=== PATIENT | female | born 1995 | race African-American/Black ===

== ENCOUNTER 2019-12-20 23:05 | Emergency (ER) | payer MEDICAID ==
[~2019-12-20] VITALS: Ht 167.6 cm; Wt 72.6 kg
[2019-12-20 23:20] VITALS: BP 131/83
--- NOTE | 2019-12-20 23:20 | NUR ---
ED Nurse Note: Pt walked into ED from home for c/o diffuse abdominal pain onset three days ago. Pt states pain is sharp and burning in nature, nonradiating. Pt also reports n/v, decreased oral intake and has not been able to sleep. Pt denies urinary symptoms. Pt is aaox4, no cardiac or respiratory distress noted, ambulatory with steady gait. Pt connected to cardiac cath technologist.
--- NOTE | 2019-12-20 23:37 | Emergency Room Report ---
History of Present Illness General Chief Complaint: Vomiting Source: Patient Present Illness HPI Disclaimer: Please note that this report is being documented using [employer] technology. This can lead to erroneous entry secondary to incorrect interpretation by the dictating instrument. HPI: 24-year-old female with no reported medical history resents for evaluation of abdominal pain. Symptoms been present approximately 3 days. She notes an upper abdominal cramping and stabbing pain in the epigastrium left and right upper quadrants. Has been constant since onset. Does not remember an inciting illness. Has reported repeated nonbloody, nonbilious type vomiting without diarrhea. Denies lower pelvic pain. No history of intra-abdominal surgeries. Denies dysuria, hematuria, vaginal bleeding or vaginal discharge. LMP unknown. Denies drug or alcohol use PMH: Denies PSH: Denies Allergies: None reported Social Hx: Denies Allergies: Coded Allergies: No Known Allergies (Unverified , 12/20/19) Patient History Now: No Nursing Documentation-PMH Past Medical History: No Stated History Review of Systems All Other Systems: negative except mentioned in HPI Physical Exam Vital Signs Date Time Temp Pulse Resp B/P (MAP) Pulse Ox O2 Delivery O2 Flow Rate FiO2 12/20/19 23:10 98.1 85 22 131/83 (99) 100 General: Awake and alert, appears uncomfortable HEENT: NC/AT. EOMI. anicteric sclera. Moist mucous membranes. Cardiovascular: RRR. S1 and S2 normal. No murmur appreciated Resp: Normal work of breathing. No cough, wheezing or crackles appreciated Abdomen: Abdomen is soft, nondistended. Tenderness in the epigastrium, left upper quadrant right upper quadrant without Contreras's. No significant tenderness in the lower quadrants or the periumbilical region. No CVA tenderness. Skin: Intact. No abrasions, laceration or rash over the exposed skin MSK: Normal tone and bulk. Moving all extremities. No obvious deformity. Neuro: Awake and alert. Mentating appropriately. Medical Decision Making Diagnostic Impression: Primary Impression: Vomiting Additional Impressions: UTI (urinary tract infection) Subchorionic hemorrhage in first trimester ER Course 24-year-old female presents for evaluation of 3 days upper abdominal pain, nausea and vomiting. Differential includes but not limited to gastritis, pancreatitis, cholecystitis, hepatitis, bowel obstruction, appendicitis, diverticulitis, nephrolithiasis. Start broad metabolic and infectious work-up. Will provide IV fluids, antiemetics. Her abdomen at this time Laboratory Tests Test 12/20/19 23:20 12/20/19 23:35 White Blood Count 8.9 K/UL (4.8-10.8) Red Blood Count 3.89 M/UL (4.20-5.40) L Hemoglobin 12.2 G/DL (12.0-16.0) Hematocrit 33.4 % (37.0-47.0) L Mean Corpuscular Volume 86 FL (80-99) Mean Corpuscular Hemoglobin 31.4 PG (27.0-31.0) H Mean Corpuscular Hemoglobin Concent 36.6 G/DL (32.0-36.0) H Red Cell Distribution Width 11.2 % (11.6-14.8) L Platelet Count 294 K/UL (150-450) Mean Platelet Volume 5.3 FL (6.5-10.1) L Neutrophils (%) (Auto) 84.5 % (45.0-75.0) H Lymphocytes (%) (Auto) 10.2 % (20.0-45.0) L Monocytes (%) (Auto) 4.8 % (1.0-10.0) Eosinophils (%) (Auto) 0.0 % (0.0-3.0) Basophils (%) (Auto) 0.4 % (0.0-2.0) Sodium Level 141 MMOL/L (136-145) Potassium Level 3.2 MMOL/L (3.5-5.1) L Chloride Level 105 MMOL/L (98-107) Carbon Dioxide Level 21 MMOL/L (21-32) Anion Gap 15 mmol/L (5-15) Blood Urea Nitrogen 18 mg/dL (7-18) Creatinine 0.7 MG/DL (0.55-1.30) Estimate Glomerular Filtration Rate > 60 mL/min (>60) Glucose Level 121 MG/DL (74-106) H Calcium Level 9.5 MG/DL (8.5-10.1) Total Bilirubin 0.7 MG/DL (0.2-1.0) Aspartate Amino Transferase (AST) 15 U/L (15-37) Alanine Aminotransferase (ALT) 23 U/L (12-78) Alkaline Phosphatase 46 U/L (46-116) Total Protein 8.4 G/DL (6.4-8.2) H Albumin 4.4 G/DL (3.4-5.0) Globulin 4.0 g/dL Albumin/Globulin Ratio 1.1 (1.0-2.7) Lipase 41 U/L (73-393) L Human Chorionic Gonadotropin, Quant 71807 mIU/mL (1-6) H Urine Color Yellow Urine Appearance Slightly cloudy Urine pH 6 (4.5-8.0) Urine Specific [place] 1.025 (1.005-1.035) Urine Protein 3+ (NEGATIVE) H Urine Glucose (UA) Negative (NEGATIVE) Urine Ketones 4+ (NEGATIVE) H Urine Blood 1+ (NEGATIVE) H Urine Nitrite Negative (NEGATIVE) Urine Bilirubin Negative (NEGATIVE) Urine Urobilinogen 1 MG/DL (0.0-1.0) H Urine Leukocyte Esterase 1+ (NEGATIVE) H Urine RBC 2-4 /HPF (0 - 2) H Urine WBC 2-4 /HPF (0 - 2) Urine Squamous Epithelial Cells Many /LPF (NONE/OCC) H Urine Bacteria Many /HPF (NONE) H Urine HCG, Qualitative Positive (NEGATIVE) Reevaluation Time: 02:05 Last Vital Signs Date Time Temp Pulse Resp B/P (MAP) Pulse Ox O2 Delivery O2 Flow Rate FiO2 12/20/19 23:10 98.1 85 22 131/83 (99) 100 Reevaluation Impression Urinalysis shows a positive urine hCG screen and a blood test showed an hCG level of greater than 20,000. Patient does not know her LMP. Ultrasound was ordered showing a gestational sac without a pole. There is a subchorionic hemorrhage noted approximately 25% of the gestational sac. May be too early to see the pole and the patient will require repeat ultrasound by her PLAYER DEVELOPMENT MANAGER both her development and for monitoring of the subchorionic hemorrhage. Rh factor is positive, RhoGam not needed. There is bacteria in the urinalysis which was treated with ceftriaxone in the emergency department and then the patient will be discharged on Keflex. Will start on prenatals and Zofran as well. Patient received IV fluids had no further emesis. She is tolerating p.o. Can follow-up with her PLAYER DEVELOPMENT MANAGER for repeat ultrasound. Discussed reasons to return to the emergency department. She understands and agrees with this treatment plan. Disposition: HOME, SELF-CARE Condition: Stable Scripts Ondansetron Odt* (ZOFRAN ODT*) 4 Mg Tab.rapdis 4 MG BC EVERY 6 HOURS PRN for Nausea & Vomiting, #10 TAB 0 Refills Prov: Naldo Azar MD 12/21/19 Cephalexin* (KEFLEX*) 500 Mg Capsule 500 MG ORAL EVERY 12 HOURS for 10 Days, #20 CAP 0 Refills Prov: Naldo Azar MD 12/21/19 Vit37/Iron/Folic Acid (PRENATA CHEWABLE TABLET) 1 Each Tab.chew 1 EACH PO DAILY, #30 TAB Prov: Naldo Azar MD 12/21/19 Referrals: [facility],REFERRING (PCP) Naldo Azar MD Dec 20, 2019 23:37
[2019-12-20 23:41] LABS: BASOPHILS % (AUTO) 0.4 % (0.0-2.0); HEMATOCRIT 33.4 % (37.0-47.0); HEMOGLOBIN 12.2 G/DL (12.0-16.0); LYMPHOCYTES % (AUTO) 10.2 % (20.0-45.0); MEAN CORPUSCULAR VOLUME 86 FL (80-99); MONOCYTES % (AUTO) 4.8 % (1.0-10.0); NEUTROPHILS % (AUTO) 84.5 % (45.0-75.0); PLATELET COUNT 294 K/UL (150-450); RED BLOOD COUNT 3.89 M/UL (4.20-5.40); RED CELL DISTRIBUTION WIDTH 11.2 % (11.6-14.8); WHITE BLOOD COUNT 8.9 K/UL (4.8-10.8)
[2019-12-20 23:52] LABS: ANION GAP 15 mmol/L (5-15); BLOOD UREA NITROGEN 18 mg/dL (7-18); CALCIUM 9.5 MG/DL (8.5-10.1); CARBON DIOXIDE 21 MMOL/L (21-32); CHLORIDE 105 MMOL/L (98-107); CREATININE 0.7 MG/DL (0.55-1.30); POTASSIUM 3.2 MMOL/L (3.5-5.1); SODIUM 141 MMOL/L (136-145)
[2019-12-20 23:54] LABS: APPEARANCE,URINE SLIGHTLY CLOUDY; BILIRUBIN, URINE NEGATIVE (NEGATIVE); GLUCOSE, URINE (UA) NEGATIVE (NEGATIVE); KETONES,URINE 4+ (NEGATIVE); LEUKOCYTE ESTERASE ,URINE 1+ (NEGATIVE); NITRITE,URINE NEGATIVE (NEGATIVE); PH,URINE 6 (4.5-8.0); PROTEIN,URINE 3+ (NEGATIVE); UROBILINOGEN,URINE 1 MG/DL (0.0-1.0)
[2019-12-20 23:56] LABS: ALANINE AMINOTRANSFERASE 23 U/L (12-78); ALBUMIN 4.4 G/DL (3.4-5.0); ALBUMIN/GLOBULIN RATIO 1.1 (1.0-2.7); ALKALINE PHOSPHATASE 46 U/L (46-116); ASPARTATE AMINO TRANSFERASE 15 U/L (15-37); BILIRUBIN,TOTAL 0.7 MG/DL (0.2-1.0)
[2019-12-21 00:05] LABS: COLOR,URINE YELLOW
[2019-12-21] MEDS ORDERED: Morphine Sulfate 4mg/ml Inj (IV USE ONLY) IVP ONE (00:15)
[2019-12-21] MEDS ORDERED: cefTRIAXone 1 GM in NS 55 ML IVPB ONE (00:15)
--- NOTE | 2019-12-21 02:00 | NUR ---
ED Nurse Note: Patient back from US in stable condition.
[2019-12-21] MEDS ORDERED: PRENATA CHEWAB1 EACH PO (02:04)
[2019-12-21] MEDS ORDERED: ONDANSETRON ODT4 MG BC (02:04)
[2019-12-21] MEDS ORDERED: CEPHALEXIN500 MG ORAL (02:04)
[2019-12-21] MEDS ORDERED: Acetaminophen 500mg (ES) tab ORAL ONE ×2 (02:11→02:15)
--- NOTE | 2019-12-21 02:12 | Diagnostic Imaging Report ---
Indication: Pelvic pain, positive test Technique: Transabdominal and transvaginal images of the pelvis. Doppler interrogation of the ovaries Comparison: none Findings: The uterus measures 8.8 cm in length by 5.1 cm AP. Within the endometrium, there is a gestational sac. This contains a yolk sac. No definite pole or heart activity demonstrated. Mean gestational sac diameter is 15 mm. This corresponds to estimated gestational age of 4 weeks 6 days. No subchorionic hemorrhage questionable crescentic area of low-attenuation adjacent to the gestational sac could represent a small subchorionic hemorrhage. No myometrial abnormality. Right ovary measures 3.9 cm length. Left ovary measures 2.7 cm length. Both ovaries demonstrate normal flow on Doppler. No free cul-de-sac fluid Impression: Intrauterine gestational sac demonstrated, estimated gestational age of 4 weeks 6 days by mean sac diameter. No pole or heart activity. This is most likely on the basis of very early with resultant nonvisualization of structures. However, possibly a nonviable also be considered. Recommend correlation with serial beta-hCGs, consider follow-up sonography as clinically indicated. Questionable small subchorionic hemorrhage Normal ovaries This agrees with the preliminary interpretation provided overnight by [facility]erad[facility] service.
[2019-12-21] MEDS ORDERED: RHO (D) Immune Globulin 1500 Units IV ONE (02:45)
[2019-12-21 04:30] VITALS: BP 128/78
--- NOTE | 2019-12-21 04:45 | NUR ---
ED Nurse Note: Pt states she is still in pain and is requesting more pain medication. JENNIFERD made aware.
[2019-12-21] MEDS ORDERED: Morphine Sulfate 2mg/ml Inj(IV/IM USE ONLY) IVP ONE (05:15)
[2019-12-21 06:20] VITALS: BP 132/89
--- NOTE | 2019-12-21 06:20 | NUR ---
ER DISCHARGE NOTE: Patient is cleared to be discharged per ERMD, pt is aox4, on room air, with stable vital signs. pt was given dc and prescription instructions, pt was able to verbalize understanding, pt id band and iv site removed without complications. pt is able to ambulate with steady gait. pt took all belongings.
== END 2019-12-21 06:20 | disposition home or self-care (01) ==
LOC: EMR 23:24
DX: O23.41 Unspecified infection of urinary tract in pregnancy, first trimester (principal); O20.8 Other hemorrhage in early pregnancy; O21.9 Vomiting of pregnancy, unspecified; Z3A.01 Less than 8 weeks gestation of pregnancy
CPT/HCPCS: 36415; 76801; 76830; 80053; 81003; 81025; 83690; 84702; 85025; 86850; 86900; 86901; 87086; 96361; 96365; 96375; 96376; J0696; J2270; J2405; J2791; J7030; S0028; Z7502; 99284

== ENCOUNTER 2020-03-28 11:49 | Emergency (ER) | payer MEDICAID ==
[~2020-03-28] VITALS: Ht 162.6 cm; Wt 93.9 kg
[~2020-03-28 11:49] MED LIST: CEPHALEXIN500 MG ORAL; ONDANSETRON ODT4 MG BC; PRENATA CHEWAB1 EACH PO
[2020-03-28 11:56] VITALS: BP 110/80
[2020-03-28] MEDS ORDERED: Metoclopramide 10mg/2ml Inj IVP ONE (12:00)
--- NOTE | 2020-03-28 12:06 | Emergency Room Report ---
History of Present Illness General Chief Complaint: Vomiting Source: Patient Present Illness HPI Patient presents with complaints of multiple episodes of vomiting and diarrhea reports that the symptoms started initially 4 days ago And she now saw a small trace of blood with her last vomiting episode Patient saw her primary OB physician last week and has an appointment tomorrow She feels generally weak felt dehydrated and presents for further evaluation denies any recent travel denies any fevers denies any dysuria frequency patient is a G2, P1 She Reports that she is approximately 19 weeks And she has a 4-year-old child denies any other sick contacts denies any cough Allergies: Coded Allergies: No Known Allergies (Unverified , 12/20/19) COVID-19 Screening Contact w/high risk pt: No Recent Travel to affected area: No Experienced COVID-19 symptoms?: No COVID-19 Testing performed GAS GENERATOR OPERATOR: No Patient History Past Medical History: see triage record Now: Yes - 4.5 months Reviewed Nursing Documentation: PMH: Agreed; PSxH: Agreed Nursing Documentation-PMH Past Medical History: No Stated History Review of Systems All Other Systems: negative except mentioned in HPI Physical Exam Vital Signs Date Time Temp Pulse Resp B/P (MAP) Pulse Ox O2 Delivery O2 Flow Rate FiO2 03/28/20 11:50 98.8 87 16 106/71 (83) 100 Room Air Sp02 EP Interpretation: reviewed, normal General Appearance: well appearing, no apparent distress Head: normocephalic, atraumatic Eyes: bilateral eye PERRL, bilateral eye EOMI ENT: hearing grossly normal, normal pharynx, TMs + canals normal, uvula midline Neck: full range of motion, supple, no meningismus, no bony tend Respiratory: lungs clear, normal breath sounds, no rhonchi, no respiratory distress, no retraction, no accessory muscle use Cardiovascular #1: normal peripheral pulses, regular rate, rhythm, no edema, no gallop, no JVD, no murmur Gastrointestinal: normal bowel sounds, non tender - Early gravid abdomen is, soft, no mass, no organomegaly, non-distended, no guarding, no hernia, no pulsatile mass, no rebound Genitourinary: no CVA tenderness Neurologic: motor strength/tone normal, trust advisor III-XII nml as tested, oriented x3 , sensory intact, responsive Psychiatric: mood/affect normal Lymphatic: normal inspection, no adenopathy Medical Decision Making Diagnostic Impression: Primary Impression: Vomiting Additional Impressions: UTI (urinary tract infection) ER Course With the history exam and presentation, multiple differentials considered, including but not limited to appendicitis, gastritis, cholecystitis, diverticulitis Other differential such as early miscarriage, UTI entertained Patient's ultrasound is normal blood work is at baseline levels and urine does show some infectious process possibly contaminated on repeat evaluation patient feels significantly improved And reports that she feels hunger abdomen remains soft And patient has follow-up tomorrow with her OB physician And will return earlier with any worsening symptoms Labs Test 03/28/20 12:00 White Blood Count 7.8 K/UL (4.8-10.8) Red Blood Count 4.36 M/UL (4.20-5.40) Hemoglobin 13.5 G/DL (12.0-16.0) Hematocrit 37.8 % (37.0-47.0) Mean Corpuscular Volume 87 FL (80-99) Mean Corpuscular Hemoglobin 30.9 PG (27.0-31.0) Mean Corpuscular Hemoglobin Concent 35.7 G/DL (32.0-36.0) Red Cell Distribution Width 10.8 % (11.6-14.8) Platelet Count 349 K/UL (150-450) Mean Platelet Volume 5.1 FL (6.5-10.1) Neutrophils (%) (Auto) % (45.0-75.0) Lymphocytes (%) (Auto) % (20.0-45.0) Monocytes (%) (Auto) % (1.0-10.0) Eosinophils (%) (Auto) % (0.0-3.0) Basophils (%) (Auto) % (0.0-2.0) Differential Total Cells Counted 100 Neutrophils % (Manual) 78 % (45-75) Lymphocytes % (Manual) 16 % (20-45) Monocytes % (Manual) 6 % (1-10) Eosinophils % (Manual) 0 % (0-3) Basophils % (Manual) 0 % (0-2) Band Neutrophils 0 % (0-8) Platelet Estimate Adequate Platelet Morphology Normal Red Blood Cell Morphology Normal Urine Color Yellow Urine Appearance Slightly cloudy Urine pH 6 (4.5-8.0) Urine Specific [place] 1.025 (1.005-1.035) Urine Protein 3+ (NEGATIVE) Urine Glucose (UA) Negative (NEGATIVE) Urine Ketones 4+ (NEGATIVE) Urine Blood 2+ (NEGATIVE) Urine Nitrite Negative (NEGATIVE) Urine Bilirubin Negative (NEGATIVE) Urine Urobilinogen 8 MG/DL (0.0-1.0) Urine Leukocyte Esterase 2+ (NEGATIVE) Urine RBC 2-4 /HPF (0 - 2) Urine WBC 2-4 /HPF (0 - 2) Urine Squamous Epithelial Cells Many /LPF (NONE/OCC) Urine Bacteria Moderate /HPF (NONE) Urine Mucus Moderate /LPF (NONE/OCC) Sodium Level 141 MMOL/L (136-145) Potassium Level 3.6 MMOL/L (3.5-5.1) Chloride Level 101 MMOL/L (98-107) Carbon Dioxide Level 24 MMOL/L (21-32) Anion Gap 16 mmol/L (5-15) Blood Urea Nitrogen 14 mg/dL (7-18) Creatinine 0.6 MG/DL (0.55-1.30) Estimat Glomerular Filtration Rate > 60 mL/min (>60) Glucose Level 86 MG/DL (74-106) Calcium Level 9.4 MG/DL (8.5-10.1) Total Bilirubin 0.5 MG/DL (0.2-1.0) Aspartate Amino Transf (AST/SGOT) 14 U/L (15-37) Alanine Aminotransferase (ALT/SGPT) 18 U/L (12-78) Alkaline Phosphatase 46 U/L (46-116) Total Protein 8.3 G/DL (6.4-8.2) Albumin 3.8 G/DL (3.4-5.0) Globulin 4.5 g/dL Albumin/Globulin Ratio 0.8 (1.0-2.7) Lipase 60 U/L (73-393) CT/MRI/US Diagnostic Results CT/MRI/US Diagnostic Results : Impression Pelvic Limited OB ultrasound: Appropriate heart tone no obvious acute process Last Vital Signs Date Time Temp Pulse Resp B/P (MAP) Pulse Ox O2 Delivery O2 Flow Rate FiO2 03/28/20 11:50 98.8 87 16 106/71 (83) 100 Room Air Status: improved Disposition: HOME, SELF-CARE Condition: Improved Scripts Nitrofurantoin Monohyd/M-Cryst* (MACROBID 100 MG*) 100 Mg Capsule 100 MG ORAL EVERY 12 HOURS for 5 Days, CAP Prov: Anila Irving DO 03/28/20 Ondansetron* (ZOFRAN*) 4 Mg Tablet 4 MG ORAL Q12HR PRN for Nausea & Vomiting, #10 TAB Prov: Anila Irving DO 03/28/20 Additional Instructions: Patient is provided with the discharge instructions notified to follow up with primary doctor in the next 2-3 days otherwise return to the er with any worsening symptoms. Please note that this report is being documented using [employer] technology. This can lead to erroneous entry secondary to incorrect interpretation by the dictating instrument. Anila Irving DO March 28, 2020 12:06
[2020-03-28 12:17] LABS: APPEARANCE,URINE SLIGHTLY CLOUDY; BILIRUBIN, URINE NEGATIVE (NEGATIVE); GLUCOSE, URINE (UA) NEGATIVE (NEGATIVE); HEMATOCRIT 37.8 % (37.0-47.0); HEMOGLOBIN 13.5 G/DL (12.0-16.0); KETONES,URINE 4+ (NEGATIVE); LEUKOCYTE ESTERASE ,URINE 2+ (NEGATIVE); MEAN CORPUSCULAR VOLUME 87 FL (80-99); NITRITE,URINE NEGATIVE (NEGATIVE); PH,URINE 6 (4.5-8.0); PLATELET COUNT 349 K/UL (150-450); PROTEIN,URINE 3+ (NEGATIVE); RED BLOOD COUNT 4.36 M/UL (4.20-5.40); RED CELL DISTRIBUTION WIDTH 10.8 % (11.6-14.8); UROBILINOGEN,URINE 8 MG/DL (0.0-1.0); WHITE BLOOD COUNT 7.8 K/UL (4.8-10.8)
[2020-03-28 12:24] LABS: COLOR,URINE YELLOW
[2020-03-28 12:25] LABS: ANION GAP 16 mmol/L (5-15); BLOOD UREA NITROGEN 14 mg/dL (7-18); CALCIUM 9.4 MG/DL (8.5-10.1); CARBON DIOXIDE 24 MMOL/L (21-32); CHLORIDE 101 MMOL/L (98-107); CREATININE 0.6 MG/DL (0.55-1.30); POTASSIUM 3.6 MMOL/L (3.5-5.1); SODIUM 141 MMOL/L (136-145)
[2020-03-28 12:30] LABS: ALANINE AMINOTRANSFERASE 18 U/L (12-78); ALBUMIN 3.8 G/DL (3.4-5.0); ALBUMIN/GLOBULIN RATIO 0.8 (1.0-2.7); ALKALINE PHOSPHATASE 46 U/L (46-116); ASPARTATE AMINO TRANSFERASE 14 U/L (15-37); BILIRUBIN,TOTAL 0.5 MG/DL (0.2-1.0)
[2020-03-28] MEDS ORDERED: cefTRIAXone 1 GM in NS 55 ML IVPB ONE (13:45)
[2020-03-28] MEDS ORDERED: ZOFRAN4 M3 ORAL (13:53)
[2020-03-28] MEDS ORDERED: NITROFURANTOIN100 M2 ORAL (13:53)
[2020-03-28 14:08] VITALS: BP 122/76
--- NOTE | 2020-03-28 14:14 | Diagnostic Imaging Report ---
Indication: Abdominal pain, hematemesis Technique: Grayscale and duplex Doppler imaging of the pelvis performed utilizing a transabdominal scan and endovaginal scan. Comparison: 12/21/2019 Findings: The cervix measures 3.5 cm in length and is closed. A single living intrauterine is noted, cephalic in presentation. Placenta is anterior. No evidence to suggest abnormal placentation. Approximate ultrasound age of 20 weeks 4 days based on obtained measurements. Cardiac activity is demonstrated on cine clips. heart rate 161 bpm. three-vessel cord is identified. No gross anatomic abnormalities appreciated however note that sensitivity in evaluation for such is limited on this emergency protocol exam. Recommend complete anatomy scan on a routine/nonemergent basis if not performed already. Amniotic fluid index within normal limits; HEIDI 15.3. Ovaries not visualized. IMPRESSION: Single living intrauterine with approximate age by ultrasound of 20 weeks 4 days, heart rate 161 bpm. Cervix measures 3.5 cm in length and is closed. Ovaries not visualized. Note: Unremarkable emergent ultrasound evaluation does not insure well-being or positive outcome for the . monitoring including a nonstress test may be needed and clinical evaluation by SUPPORTIVE EMPLOYMENT CASE MANAGER is highly recommended.
== END 2020-03-28 14:08 | disposition home or self-care (01) ==
LOC: EMR 12:10
DX: O21.2 Late vomiting of pregnancy (principal); Z3A.20 20 weeks gestation of pregnancy; O23.42 Unspecified infection of urinary tract in pregnancy, second trimester
CPT/HCPCS: 36415; 76805; 76817; 80053; 81003; 83690; 85007; 85025; 87086; 96361; 96365; 96375; J0696; J2765; J7030; Z7502; 99284